=== PATIENT | female | born 1970 | race Caucasian/White ===

== ENCOUNTER 2018-04-27 10:07 | Emergency (ER) | payer BC ==
[~2018-04-27] VITALS: Ht 149.9 cm; Wt 44.7 kg
[2018-04-27 10:08] VITALS: BP 127/60; PULSE 72; RESP 16; TEMP 97.7; O2SAT 98
[2018-04-27] MEDS ORDERED: FLUO-1 PO (10:31)
[2018-04-27] MEDS ORDERED: ZANT150T2 PO (10:31)
--- NOTE | 2018-04-27 10:48 | PD ---
HPI Chief Complaint: ENT Complaint Time Seen by Provider: 10:39 Travel History International Travel<30 days: No Contact w/Intl Traveler<30days: No Traveled to known affect area: No History of Present Illness HPI This 47-year-old female says she woke up this morning and had some itching in her right ear. Then noted that her throat felt funny and she noted that her uvula was swollen. She has had trouble like this in the past related to allergies to medication. She has a history of Crohn's disease and had a reaction like this to Humira. She is not on it now. She has not had fever or chills. She is not short of breath. PFSH Past Medical History Medical other: Yes (CROHNS) Tetanus Vaccination: < 5 Years Influenza Vaccination: Yes ?: Not Past Surgical History Appendectomy: Yes Hysterectomy: Yes Tonsillectomy: Yes Other Surgery: Yes (COLECTOMY) Social History Alcohol Use: No Tobacco Use: No Substance Use: No Allergies-Medications (Allergen,Severity, Reaction): Coded Allergies: No Known Allergies (Verified Allergy, Unknown, 04/27/18) adalimumab (Verified Allergy, Unknown, 04/27/18) infliximab (Verified Allergy, Unknown, 04/27/18) Reported Meds & Prescriptions Reported Meds & Active Scripts Active Reported Zantac (Ranitidine HCl) 150 Mg Tab Unknown Dose PO DAILY Prozac (Fluoxetine HCl) 10 Mg Cap Unknown Dose PO DAILY Review of Systems Except as stated in HPI: all other systems reviewed are Neg General / Constitutional: No: Fever, Chills Eyes: No: Diploplia HENT: Positive: Other (Itchy ear), No: Headaches Cardiovascular: No: Chest Pain or Discomfort, Palpitations Respiratory: No: Cough, Shortness of Breath Gastrointestinal: No: Nausea Skin: No Rash Neurologic: No: Weakness Endocrine: No: Heat Intolerance, Cold Intolerance Hematologic/Lymphatic: No: Easy Bruising Physical Exam Narrative GENERAL: Well-developed female SKIN: Focused skin assessment warm/dry. HEAD: Atraumatic. Normocephalic. EYES: Pupils equal and round. No scleral icterus. No injection or drainage. ENT: No nasal bleeding or discharge. Mucous membranes pink and moist. Uvula is enlarged and translucent. There is some edema on the left posterior pharynx NECK: Trachea midline. No JVD. CARDIOVASCULAR: Regular rate and rhythm. No murmur appreciated. RESPIRATORY: No accessory muscle use. Clear to auscultation. Breath sounds equal bilaterally. GASTROINTESTINAL: Abdomen soft, non-tender, nondistended. Hepatic and splenic margins not palpable. MUSCULOSKELETAL: No obvious deformities. No clubbing. No cyanosis. No edema. NEUROLOGICAL: Awake and alert. No obvious cranial nerve deficits. Motor grossly within normal limits. Normal speech. PSYCHIATRIC: Appropriate mood and affect; insight and judgment normal. Data Data Last Documented VS Vital Signs Date Time Temp Pulse Resp B/P (MAP) Pulse Ox O2 Delivery O2 Flow Rate FiO2 04/27/18 11:35 83 16 108/57 (74) 100 04/27/18 10:08 97.7 Orders Orders Epinephrine (1:1000) Inj (Adrenalin (1:1 (04/27/18 11:00) Dexamethasone Inj (Decadron Inj) (04/27/18 11:00) MDM Medical Decision Making Medical Screen Exam Complete: Yes Emergency Medical Condition: Yes Medical Record Reviewed: Yes Differential Diagnosis Differential includes uvulitis, allergic reaction, Narrative Course This appears to be secondary to allergy there is no evidence of infection. She was given adrenaline and a single dose of Decadron. Repeat exam shows improvement in the edema. She is stable for discharge Diagnosis Primary Impression: Uvulitis Disposition: 01 DISCHARGE HOME Condition: Stable Hung Bustamante MD Apr 27, 2018 10:48
[2018-04-27 11:00] VITALS: BP 107/55; PULSE 82; RESP 16; O2SAT 99
[2018-04-27] MEDS ORDERED: EPINEPHrine HCL (1:1000) 1 MG/ML VIAL IM ONE (11:00)
[2018-04-27] MEDS ORDERED: DEXAMETHASONE SOD PHOS 20 MG/5 ML VIAL IM ONE (11:00)
[2018-04-27 11:35] VITALS: BP 108/57; PULSE 83; RESP 16; O2SAT 100
== END 2018-04-27 12:08 | disposition home or self-care (01) ==
LOC: PHED 10:07
DX: K12.2 Cellulitis and abscess of mouth (principal); K50.90 Crohn's disease, unspecified, without complications
CPT/HCPCS: 96372; 99283; J0171; J1100